=== PATIENT | male | born 1935 | race Caucasian/White ===

== ENCOUNTER 2021-06-02 13:52 | Inpatient (IN) | payer MEDICARE ==
[2021-06-02 15:07] LABS: Actual Bicarbonate (HCO3a) 49.7 mEq/L (22-28); Analyzer IN Cardio ER; Base Excess (BEa) 20.8 mEq/L (-2.0 to +3.0); Calcium, Ionized (arterial) 1.13 mmol/L (1.12-1.30); Carboxyhemoglobin (COHb) 0.8 gm% (0.0-3.0); Hemoglobin (Hb) 12.4 g/dL (14.0-18.0); Potassium - ABG Lab 3.97 mmol/L (3.70-5.30); pH, Arterial 7.41 (7.35-7.45)
[2021-06-02 15:14] LABS: Hemoglobin 12.2 g/dL (14.0-18.0); Mean Corpuscular HGB CONC 30.6 g/dL (32.0-36.0); Mean Corpuscular Hemoglobin 29.8 pg (27.0-31.0); Mean Corpuscular Volume 97.3 fL (78.0-98.0); Mean Platelet Volume 7.6 fL (7.4-10.4); Platelet Count 167 thou/uL (130-400); RBC Distribution Width 13.2 % (11.5-14.5); White Blood Cell (WBC) Count 23.8 thou/uL (4.8-10.8)
[2021-06-02] MEDS ORDERED: cefTRIAXone\\ROCEPHIN 1 GM VIAL ONE (15:16)
[2021-06-02 15:29] LABS: ALT (SGPT) 19 U/L (8-55); AST (SGOT) 14 U/L (5-34); Alkaline Phosphatase 75 U/L (40-110); BUN (Urea Nitrogen) 37 mg/dL (8.4-25.7); Band 6 % (5-11); Bilirubin, Total 1.3 mg/dL (0.2-1.2); Calc. Creatinine Clearance 0 mL/min (70-130); Calcium 9.2 mg/dL (7.8-10.44); Globulin 3.2 g/dL (2.4-3.5); Glucose 134 mg/dL (83-110); Lymphocytes 2 % (21-51); MDiff Complete? YES; Monocytes 5 % (0-10); Neutrophil 87 % (42-75); Platelet Morphology Comment Appears Adequate; Protein, Total 6.2 g/dL (5.8-8.1); RBC Morphology Normal
[2021-06-02 15:39] LABS: Anion Gap 14 mmol/L (10-20); Carbon Dioxide 40 mmol/L (23-31); Chloride 92 mmol/L (98-107); Potassium 4.2 mmol/L (3.5-5.1); Sodium 142 mmol/L (136-145)
[2021-06-02 15:50] LABS: CKMB 0.7 ng/mL (0-6.6)
[2021-06-02 15:51] LABS: SARS-CoV-2 NAA Rapid Test Not Detected (NotDetected)
[2021-06-02] MEDS ORDERED: Azithromycin 500 MG VIAL ONE (16:02)
[2021-06-02 16:24] LABS: CO2 Tension 80.4 mmHg (35.0-45.0); O2 Tension (PaO2), arterial 51.9 mmHg (> 60.0)
[2021-06-02 16:25] LABS: Puncture Site RRA
[2021-06-02] MEDS ORDERED: Ondansetron PF 4 MG/2 ML Vial IVP PRN (17:21)
[2021-06-02] MEDS ORDERED: Albuterol Sulfate 2.5 mg/3 ml Neb NEB PRN (17:21)
[2021-06-02] MEDS ORDERED: Sodium Chloride 0.9% 1,000 ML IV SCH (17:30)
[2021-06-02] MEDS: Arformoterol 15 MCG/2 ML NEB NEB SCH (18:59)
[2021-06-02] MEDS: Cefepime 2 GM in Sodium Chloride 0.9% 100 ML IVPB SCH (19:48)
[2021-06-02 19:52] LABS: Troponin I 0.026 ng/mL (< 0.028)
[2021-06-02] MEDS: Apixaban 5 MG TAB PO SCH (20:51)
[2021-06-02] MEDS: Atorvastatin Calcium 10 MG TAB PO SCH (20:51)
[2021-06-02 21:19] LABS: Troponin I 0.034 ng/mL (< 0.028)
[2021-06-02] MEDS ORDERED: VANCOMYCIN 2 GRAM/400 ML BAG 2 GM in Premix Bag 1 BAG IVPB SCH (22:00)
[2021-06-02 22:30] LABS: Lactic Acid 2.1 mmol/L (0.5-2.2)
[2021-06-03] MEDS: Cefepime 2 GM in Sodium Chloride 0.9% 100 ML IVPB SCH ×3 (02:21→17:30)
[2021-06-03 03:31] LABS: #Eosinphils 0.2 thou/uL (0.0-0.7); #Lymphocytes 0.5 thou/uL (1.20-3.40); #Monocytes 1.1 thou/uL (0.11-0.59); #Neutrophils 21.5 thou/uL (1.40-6.50); %Eosinophils 0.7 % (0.0-10.0); %Lymphocytes 2.3 % (21.0-51.0); %Monocytes 4.7 % (0.0-10.0); %Neutrophils 92.3 % (42.0-75.0); Hemoglobin 11.6 g/dL (14.0-18.0); Mean Corpuscular HGB CONC 30.6 g/dL (32.0-36.0); Mean Corpuscular Hemoglobin 30.2 pg (27.0-31.0); Mean Corpuscular Volume 98.9 fL (78.0-98.0); Mean Platelet Volume 7.9 fL (7.4-10.4); Platelet Count 150 thou/uL (130-400); RBC Distribution Width 13.2 % (11.5-14.5); Red Blood Cell (RBC) Count 3.85 mill/uL (4.70-6.10); White Blood Cell (WBC) Count 23.3 thou/uL (4.8-10.8)
[2021-06-03 04:07] LABS: Anion Gap 16 mmol/L (10-20); BUN (Urea Nitrogen) 27 mg/dL (8.4-25.7); Calc. Creatinine Clearance 104 mL/min (70-130); Calcium 8.7 mg/dL (7.8-10.44); Carbon Dioxide 33 mmol/L (23-31); Chloride 96 mmol/L (98-107); Glucose 81 mg/dL (83-110); Potassium 4.9 mmol/L (3.5-5.1); Sodium 137 mmol/L (136-145)
[2021-06-03] MEDS: Arformoterol 15 MCG/2 ML NEB NEB SCH ×2 (08:20→18:36)
[2021-06-03] MEDS: Carvedilol 3.125 MG TAB PO SCH ×2 (08:26→16:04)
[2021-06-03] MEDS: Apixaban 5 MG TAB PO SCH ×2 (08:27→20:17)
[2021-06-03] MEDS: Pantoprazole 40 MG VIAL IVP SCH (08:41)
[2021-06-03] MEDS ORDERED: FLU VACC QS2021-22(65YR UP)/PF 240 MCG/0.7 ML SYRINGE IM ONE (09:00)
[2021-06-03] MEDS ORDERED: predniSONE 20 MG TAB PO SCH (09:00)
[2021-06-03] MEDS ORDERED: Furosemide 40 MG/4 ML VIAL SLOW IVP SCH (10:15)
[2021-06-03] MEDS: Vancomycin 1 GM in Premix Bag 1 BAG IVPB SCH ×2 (10:42→22:01)
[2021-06-03] MEDS: Azithromycin 500 MG in Sodium Chloride 0.9% 250 ML 250 ML IVPB SCH (15:53)
[2021-06-03] MEDS: methylPREDNISolone Sod Succ 40 MG VIAL IVP SCH (20:18)
[2021-06-03] MEDS: Atorvastatin Calcium 10 MG TAB PO SCH (20:18)
[2021-06-04] MEDS: Cefepime 2 GM in Sodium Chloride 0.9% 100 ML IVPB SCH ×3 (02:23→19:01)
[2021-06-04 04:17] LABS: BUN (Urea Nitrogen) 33 mg/dL (8.4-25.7); Calc. Creatinine Clearance 76 mL/min (70-130); Calcium 9.1 mg/dL (7.8-10.44); Glucose 139 mg/dL (83-110)
[2021-06-04 04:24] LABS: Band 13 % (5-11); Hemoglobin 11.2 g/dL (14.0-18.0); Hypochromia SLIGHT = 6-15 cells (100X) (0-5/hpf); MDiff Complete? YES; Mean Corpuscular HGB CONC 30.7 g/dL (32.0-36.0); Mean Corpuscular Hemoglobin 29.5 pg (27.0-31.0); Mean Corpuscular Volume 96.1 fL (78.0-98.0); Metamyelocyte 1 % (0-0); Monocytes 8 % (0-10); Neutrophil 78 % (42-75); Nucleated RBC 0 % (0); Platelet Count 128 thou/uL (130-400); Platelet Morphology Comment Appears Adequate; RBC Distribution Width 13.4 % (11.5-14.5); White Blood Cell (WBC) Count 19.9 thou/uL (4.8-10.8)
[2021-06-04 04:26] LABS: Anion Gap 17 mmol/L (10-20); Carbon Dioxide 34 mmol/L (23-31); Chloride 94 mmol/L (98-107); Potassium 4.4 mmol/L (3.5-5.1); Sodium 141 mmol/L (136-145)
[2021-06-04] MEDS: Arformoterol 15 MCG/2 ML NEB NEB SCH ×2 (06:31→18:39)
[2021-06-04] MEDS: Pantoprazole 40 MG VIAL IVP SCH (08:55)
[2021-06-04] MEDS: methylPREDNISolone Sod Succ 40 MG VIAL IVP SCH ×2 (08:55→21:38)
[2021-06-04] MEDS: Apixaban 5 MG TAB PO SCH (08:56)
[2021-06-04] MEDS: Carvedilol 3.125 MG TAB PO SCH ×2 (08:56→16:18)
[2021-06-04 09:07] LABS: Vancomycin, Trough 19.2 ug/mL
[2021-06-04] MEDS ORDERED: Furosemide 40 MG/4 ML VIAL SLOW IVP SCH (09:30)
[2021-06-04] MEDS: Vancomycin 1 GM in Premix Bag 1 BAG IVPB SCH ×2 (09:37→21:38)
[2021-06-04] MEDS: Enoxaparin Sodium 100 MG/ML SYRINGE SC SCH ×2 (10:10→21:36)
[2021-06-04 10:23] LABS: Actual Bicarbonate (HCO3a) 50.3 mEq/L (22-28); Base Excess (BEa) 20.6 mEq/L (-2.0 to +3.0); Calcium, Ionized (arterial) 1.15 mmol/L (1.12-1.30); Carboxyhemoglobin (COHb) 1.1 gm% (0.0-3.0); Hemoglobin (Hb) 12.5 g/dL (14.0-18.0); O2 Tension (PaO2), arterial 63.4 mmHg (> 60.0); Potassium - ABG Lab 3.63 mmol/L (3.70-5.30); pH, Arterial 7.38 (7.35-7.45)
[2021-06-04 10:28] LABS: CO2 Tension 86.8 mmHg (35.0-45.0)
[2021-06-04 10:30] LABS: Puncture Site RRA
[2021-06-04 10:33] LABS: Actual Bicarbonate (HCO3a) 46.9 mEq/L (22-28); Base Excess (BEa) 18.9 mEq/L (-2.0 to +3.0); Calcium, Ionized (arterial) 1.13 mmol/L (1.12-1.30); Carboxyhemoglobin (COHb) 0.8 gm% (0.0-3.0); Hemoglobin (Hb) 12.3 g/dL (14.0-18.0); Potassium - ABG Lab 3.93 mmol/L (3.70-5.30); pH, Arterial 7.43 (7.35-7.45)
[2021-06-04 10:34] LABS: CO2 Tension 72.6 mmHg (35.0-45.0)
[2021-06-04 10:35] LABS: O2 Tension (PaO2), arterial 57.4 mmHg (> 60.0); Puncture Site RRA
[2021-06-04] MEDS: Azithromycin 500 MG in Sodium Chloride 0.9% 250 ML 250 ML IVPB SCH (15:53)
[2021-06-04] MEDS: Atorvastatin Calcium 10 MG TAB PO SCH (21:44)
[2021-06-05] MEDS: Cefepime 2 GM in Sodium Chloride 0.9% 100 ML IVPB SCH ×3 (02:53→17:25)
[2021-06-05 04:26] LABS: #Basophils 0.1 thou/uL (0.0-0.2); #Lymphocytes 0.1 thou/uL (1.20-3.40); #Monocytes 0.2 thou/uL (0.11-0.59); %Basophils 1.1 % (0.0-1.0); %Lymphocytes 1.4 % (21.0-51.0); %Monocytes 2.1 % (0.0-10.0); %Neutrophils 95.4 % (42.0-75.0); Hemoglobin 10.7 g/dL (14.0-18.0); Mean Corpuscular HGB CONC 31.1 g/dL (32.0-36.0); Mean Corpuscular Hemoglobin 29.5 pg (27.0-31.0); Mean Platelet Volume 8.1 fL (7.4-10.4); Platelet Count 139 thou/uL (130-400); RBC Distribution Width 13.3 % (11.5-14.5); Red Blood Cell (RBC) Count 3.61 mill/uL (4.70-6.10); White Blood Cell (WBC) Count 10.5 thou/uL (4.8-10.8)
[2021-06-05 04:47] LABS: BUN (Urea Nitrogen) 47 mg/dL (8.4-25.7); Calc. Creatinine Clearance 76 mL/min (70-130); Calcium 8.7 mg/dL (7.8-10.44); Glucose 140 mg/dL (83-110)
[2021-06-05 04:57] LABS: Anion Gap 12 mmol/L (10-20); Carbon Dioxide 40 mmol/L (23-31); Chloride 94 mmol/L (98-107); Potassium 3.2 mmol/L (3.5-5.1); Sodium 143 mmol/L (136-145)
[2021-06-05] MEDS: Arformoterol 15 MCG/2 ML NEB NEB SCH ×2 (07:07→18:59)
[2021-06-05] MEDS: Carvedilol 3.125 MG TAB PO SCH ×3 (09:41→20:52)
[2021-06-05] MEDS: Enoxaparin Sodium 100 MG/ML SYRINGE SC SCH ×2 (09:42→20:53)
[2021-06-05] MEDS: Pantoprazole 40 MG VIAL IVP SCH (09:43)
[2021-06-05] MEDS: methylPREDNISolone Sod Succ 40 MG VIAL IVP SCH ×2 (09:43→20:53)
[2021-06-05] MEDS: Vancomycin 1 GM in Premix Bag 1 BAG IVPB SCH (09:44)
[2021-06-05] MEDS: Azithromycin 500 MG in Sodium Chloride 0.9% 250 ML 250 ML IVPB SCH (16:25)
[2021-06-05] MEDS: Acetaminophen 325 MG TAB PO PRN (17:24)
[2021-06-05] MEDS ORDERED: Melatonin 3 MG TAB PO PRN (18:49)
[2021-06-05] MEDS ORDERED: Senokot S 8.6-50 MG TAB PO PRN (18:49)
[2021-06-05] MEDS ORDERED: Polyethylene Glycol 3350 17 GM Packet PO PRN (18:49)
[2021-06-05] MEDS: Atorvastatin Calcium 10 MG TAB PO SCH (20:52)
[2021-06-05 21:18] LABS: Vancomycin, Trough 24.8 ug/mL
[2021-06-06] MEDS: Cefepime 2 GM in Sodium Chloride 0.9% 100 ML IVPB SCH ×3 (03:25→18:32)
[2021-06-06 03:32] LABS: #Lymphocytes 0.3 thou/uL (1.20-3.40); #Monocytes 0.2 thou/uL (0.11-0.59); #Neutrophils 7.4 thou/uL (1.40-6.50); %Basophils 0.4 % (0.0-1.0); %Lymphocytes 3.2 % (21.0-51.0); %Monocytes 2.2 % (0.0-10.0); %Neutrophils 94.3 % (42.0-75.0); Hemoglobin 10.6 g/dL (14.0-18.0); Mean Corpuscular HGB CONC 30.9 g/dL (32.0-36.0); Mean Corpuscular Hemoglobin 29.4 pg (27.0-31.0); Mean Corpuscular Volume 95.2 fL (78.0-98.0); Mean Platelet Volume 8.2 fL (7.4-10.4); Platelet Count 126 thou/uL (130-400); RBC Distribution Width 13.1 % (11.5-14.5); White Blood Cell (WBC) Count 7.9 thou/uL (4.8-10.8)
[2021-06-06 03:53] LABS: BUN (Urea Nitrogen) 44 mg/dL (8.4-25.7); Calc. Creatinine Clearance 85 mL/min (70-130); Calcium 8.8 mg/dL (7.8-10.44); Glucose 140 mg/dL (83-110)
[2021-06-06 04:03] LABS: Anion Gap 10 mmol/L (10-20); Carbon Dioxide 40 mmol/L (23-31); Chloride 98 mmol/L (98-107); Potassium 3.4 mmol/L (3.5-5.1); Sodium 145 mmol/L (136-145)
[2021-06-06] MEDS: Transdermal Patch Removal TOP SCH (05:04)
[2021-06-06] MEDS: VANCOMYCIN 2 GRAM/400 ML BAG 2 GM in Premix Bag 1 BAG IVPB SCH (06:19)
[2021-06-06] MEDS: Arformoterol 15 MCG/2 ML NEB NEB SCH ×2 (06:55→19:49)
[2021-06-06] MEDS: Carvedilol 3.125 MG TAB PO SCH ×2 (09:01→21:59)
[2021-06-06] MEDS: Enoxaparin Sodium 100 MG/ML SYRINGE SC SCH (09:01)
[2021-06-06] MEDS: Pantoprazole 40 MG VIAL IVP SCH (09:03)
[2021-06-06] MEDS: methylPREDNISolone Sod Succ 40 MG VIAL IVP SCH ×2 (09:06→22:15)
[2021-06-06] MEDS: Acetaminophen 325 MG TAB PO PRN (13:21)
[2021-06-06] MEDS: Lidocaine 5% Patch TD SCH (17:17)
[2021-06-06] MEDS: Azithromycin 500 MG in Sodium Chloride 0.9% 250 ML 250 ML IVPB SCH (17:17)
[2021-06-06] MEDS: Atorvastatin Calcium 10 MG TAB PO SCH (21:59)
[2021-06-06] MEDS: Apixaban 5 MG TAB PO SCH (21:59)
[2021-06-07] MEDS: Cefepime 2 GM in Sodium Chloride 0.9% 100 ML IVPB SCH ×3 (02:41→18:25)
[2021-06-07 03:40] LABS: #Basophils 0.1 thou/uL (0.0-0.2); #Lymphocytes 0.2 thou/uL (1.20-3.40); #Monocytes 0.2 thou/uL (0.11-0.59); %Basophils 1.4 % (0.0-1.0); %Eosinophils 0.1 % (0.0-10.0); %Monocytes 3.1 % (0.0-10.0); %Neutrophils 93.5 % (42.0-75.0); Hemoglobin 10.6 g/dL (14.0-18.0); Mean Corpuscular HGB CONC 31.7 g/dL (32.0-36.0); Mean Corpuscular Hemoglobin 30.2 pg (27.0-31.0); Mean Corpuscular Volume 95.3 fL (78.0-98.0); Mean Platelet Volume 8.5 fL (7.4-10.4); Platelet Count 105 thou/uL (130-400); RBC Distribution Width 13.1 % (11.5-14.5); Red Blood Cell (RBC) Count 3.51 mill/uL (4.70-6.10); White Blood Cell (WBC) Count 7.5 thou/uL (4.8-10.8)
[2021-06-07 03:45] LABS: BUN (Urea Nitrogen) 38 mg/dL (8.4-25.7); Calc. Creatinine Clearance 87 mL/min (70-130); Calcium 8.8 mg/dL (7.8-10.44); Glucose 145 mg/dL (83-110)
[2021-06-07 03:55] LABS: Anion Gap 12 mmol/L (10-20); Carbon Dioxide 34 mmol/L (23-31); Chloride 103 mmol/L (98-107); Potassium 3.4 mmol/L (3.5-5.1); Sodium 146 mmol/L (136-145)
[2021-06-07] MEDS: VANCOMYCIN 2 GRAM/400 ML BAG 2 GM in Premix Bag 1 BAG IVPB SCH (06:20)
[2021-06-07] MEDS: Transdermal Patch Removal TOP SCH (06:22)
[2021-06-07] MEDS: Arformoterol 15 MCG/2 ML NEB NEB SCH ×2 (08:01→19:04)
[2021-06-07] MEDS: Pantoprazole 40 MG VIAL IVP SCH (09:26)
[2021-06-07] MEDS: Carvedilol 3.125 MG TAB PO SCH ×2 (09:26→20:45)
[2021-06-07] MEDS: Apixaban 5 MG TAB PO SCH ×2 (09:26→20:45)
[2021-06-07] MEDS: methylPREDNISolone Sod Succ 40 MG VIAL IVP SCH ×2 (09:28→20:45)
[2021-06-07] MEDS: Azithromycin 500 MG in Sodium Chloride 0.9% 250 ML 250 ML IVPB SCH (16:30)
[2021-06-07] MEDS: Lidocaine 5% Patch TD SCH (16:31)
[2021-06-07] MEDS: Atorvastatin Calcium 10 MG TAB PO SCH (20:45)
[2021-06-08] MEDS: Cefepime 2 GM in Sodium Chloride 0.9% 100 ML IVPB SCH ×3 (03:03→19:40)
[2021-06-08] MEDS: Transdermal Patch Removal TOP SCH (03:04)
[2021-06-08] MEDS: Acetaminophen 325 MG TAB PO PRN ×2 (04:18→09:20)
[2021-06-08] MEDS: VANCOMYCIN 2 GRAM/400 ML BAG 2 GM in Premix Bag 1 BAG IVPB SCH (05:06)
[2021-06-08 06:32] LABS: Anion Gap 11 mmol/L (10-20); BUN (Urea Nitrogen) 31 mg/dL (8.4-25.7); Calc. Creatinine Clearance 101 mL/min (70-130); Calcium 8.3 mg/dL (7.8-10.44); Carbon Dioxide 34 mmol/L (23-31); Chloride 103 mmol/L (98-107); Glucose 138 mg/dL (83-110); Potassium 3.2 mmol/L (3.5-5.1); Sodium 145 mmol/L (136-145)
[2021-06-08 06:34] LABS: Vancomycin, Trough 58.9 ug/mL
[2021-06-08] MEDS: Arformoterol 15 MCG/2 ML NEB NEB SCH ×2 (07:09→18:35)
[2021-06-08] MEDS: Apixaban 5 MG TAB PO SCH ×2 (09:20→19:40)
[2021-06-08] MEDS: Carvedilol 3.125 MG TAB PO SCH (09:20)
[2021-06-08] MEDS: Pantoprazole 40 MG VIAL IVP SCH (09:23)
[2021-06-08] MEDS: methylPREDNISolone Sod Succ 40 MG VIAL IVP SCH ×2 (09:23→19:40)
[2021-06-08] MEDS ORDERED: cefTRIAXone Sodium 2,000 MG in Syringe 0 ML IVPB SCH (09:30)
[2021-06-08] MEDS ORDERED: Potassium Bicarbonate/Cit Ac 20 MEQ TAB PO SCH (11:30)
[2021-06-08] MEDS ORDERED: Carvedilol 3.125 MG TAB PO SCH (11:30)
[2021-06-08] MEDS: Lidocaine 5% Patch TD SCH (16:06)
[2021-06-08 18:47] LABS: Vancomycin, Random 22.7 ug/mL (See Comment)
[2021-06-08] MEDS: Atorvastatin Calcium 10 MG TAB PO SCH (19:40)
[2021-06-08] MEDS: Carvedilol 6.25 MG TAB PO SCH (19:40)
[2021-06-08] MEDS ORDERED: VANCOMYCIN 2 GRAM/400 ML BAG 2 GM in Premix Bag 1 BAG IVPB SCH (20:00)
[2021-06-09] MEDS: Transdermal Patch Removal TOP SCH (03:17)
[2021-06-09 03:37] LABS: #Lymphocytes 0.4 thou/uL (1.20-3.40); #Monocytes 0.2 thou/uL (0.11-0.59); #Neutrophils 6.2 thou/uL (1.40-6.50); %Eosinophils 0.3 % (0.0-10.0); %Lymphocytes 5.1 % (21.0-51.0); %Monocytes 3.2 % (0.0-10.0); %Neutrophils 91.4 % (42.0-75.0); Hemoglobin 10.2 g/dL (14.0-18.0); Mean Corpuscular HGB CONC 30.8 g/dL (32.0-36.0); Mean Corpuscular Hemoglobin 29.6 pg (27.0-31.0); Mean Corpuscular Volume 96.1 fL (78.0-98.0); Mean Platelet Volume 7.9 fL (7.4-10.4); Platelet Count 134 thou/uL (130-400); RBC Distribution Width 13.3 % (11.5-14.5); Red Blood Cell (RBC) Count 3.46 mill/uL (4.70-6.10); White Blood Cell (WBC) Count 6.8 thou/uL (4.8-10.8)
[2021-06-09 03:58] LABS: BUN (Urea Nitrogen) 31 mg/dL (8.4-25.7); Calc. Creatinine Clearance 102 mL/min (70-130); Calcium 8.7 mg/dL (7.8-10.44); Glucose 122 mg/dL (83-110)
[2021-06-09 04:07] LABS: Anion Gap 11 mmol/L (10-20); Carbon Dioxide 38 mmol/L (23-31); Chloride 101 mmol/L (98-107); Potassium 4.3 mmol/L (3.5-5.1); Sodium 146 mmol/L (136-145)
[2021-06-09] MEDS: Arformoterol 15 MCG/2 ML NEB NEB SCH ×2 (07:12→18:56)
[2021-06-09] MEDS: methylPREDNISolone Sod Succ 40 MG VIAL IVP SCH (09:22)
[2021-06-09] MEDS: Apixaban 5 MG TAB PO SCH ×2 (09:22→21:58)
[2021-06-09] MEDS: Carvedilol 6.25 MG TAB PO SCH ×2 (09:22→21:58)
[2021-06-09] MEDS: Pantoprazole 40 MG VIAL IVP SCH (09:22)
[2021-06-09] MEDS ORDERED: Vancomycin HCl 1 GM in Sodium Chloride 0.9% 250 ML 250 ML IVPB SCH (10:15)
[2021-06-09] MEDS: Cefepime 2 GM in Sodium Chloride 0.9% 100 ML IVPB SCH (11:03)
[2021-06-09] MEDS: Lidocaine 5% Patch TD SCH (17:35)
[2021-06-09] MEDS: Atorvastatin Calcium 10 MG TAB PO SCH (21:58)
[2021-06-10 05:04] VITALS: BMI 30.7
[2021-06-10 05:32] LABS: #Eosinphils 0.1 thou/uL (0.0-0.7); #Lymphocytes 0.6 thou/uL (1.20-3.40); #Monocytes 0.3 thou/uL (0.11-0.59); #Neutrophils 5.6 thou/uL (1.40-6.50); %Eosinophils 1.1 % (0.0-10.0); %Lymphocytes 9.5 % (21.0-51.0); %Monocytes 3.8 % (0.0-10.0); %Neutrophils 85.6 % (42.0-75.0); Hemoglobin 10.2 g/dL (14.0-18.0); Mean Corpuscular HGB CONC 32.1 g/dL (32.0-36.0); Mean Corpuscular Hemoglobin 30.4 pg (27.0-31.0); Mean Corpuscular Volume 94.7 fL (78.0-98.0); Mean Platelet Volume 7.6 fL (7.4-10.4); Platelet Count 152 thou/uL (130-400); RBC Distribution Width 13.6 % (11.5-14.5); Red Blood Cell (RBC) Count 3.35 mill/uL (4.70-6.10); White Blood Cell (WBC) Count 6.5 thou/uL (4.8-10.8)
[2021-06-10 05:46] LABS: BUN (Urea Nitrogen) 26 mg/dL (8.4-25.7); Calc. Creatinine Clearance 105 mL/min (70-130); Calcium 8.4 mg/dL (7.8-10.44); Glucose 80 mg/dL (83-110)
[2021-06-10 05:56] LABS: Anion Gap 8 mmol/L (10-20); Carbon Dioxide 40 mmol/L (23-31); Chloride 101 mmol/L (98-107); Potassium 3.2 mmol/L (3.5-5.1); Sodium 146 mmol/L (136-145)
[2021-06-10] MEDS: Arformoterol 15 MCG/2 ML NEB NEB SCH ×2 (07:57→18:55)
[2021-06-10] MEDS ORDERED: Potassium Bicarbonate/Cit Ac 20 MEQ TAB PO SCH (08:00)
[2021-06-10] MEDS: Transdermal Patch Removal TOP SCH (08:44)
[2021-06-10] MEDS: Carvedilol 6.25 MG TAB PO SCH ×2 (09:36→20:26)
[2021-06-10] MEDS: Apixaban 5 MG TAB PO SCH ×2 (09:36→20:26)
[2021-06-10] MEDS: predniSONE 20 MG TAB PO SCH (09:36)
[2021-06-10 12:44] LABS: SARS-CoV-2 PCR by NAA Not Detected (NotDetected)
[2021-06-10] MEDS ORDERED: Loperamide HCl 2 MG CAP PO PRN (13:32)
[2021-06-10] MEDS: Lidocaine 5% Patch TD SCH (16:09)
[2021-06-10] MEDS: Atorvastatin Calcium 10 MG TAB PO SCH (20:26)
[2021-06-11] MEDS: Arformoterol 15 MCG/2 ML NEB NEB SCH (07:48)
[2021-06-11] MEDS: Transdermal Patch Removal TOP SCH (08:00)
[2021-06-11] MEDS ORDERED: Potassium Bicarbonate/Cit Ac 20 MEQ TAB PO SCH (08:00)
[2021-06-11] MEDS: predniSONE 20 MG TAB PO SCH (10:00)
[2021-06-11] MEDS: Carvedilol 6.25 MG TAB PO SCH (10:00)
[2021-06-11] MEDS: Apixaban 5 MG TAB PO SCH (10:00)
[2021-06-11] MEDS: Lidocaine 5% Patch TD SCH (17:45)
[2021-06-11 17:50] VITALS: BP 137/68; TEMP 97.7
== END 2021-06-11 17:45 | disposition hospice, home (50) | DRG 193 ==
LOC: ERS 13:52 → IMCU/EMU 16:36 → 2NO 06-09 13:35
PROVIDERS: ADMIT Family Medicine; ATTEND Hospitalist
PROC: 5A09557 Assistance with Respiratory Ventilation, Greater than 96 Consecutive Hours, Continuous Positive Airway Pressure (ICD-10-PCS; principal; 2021-06-02)
DX: J18.9 Pneumonia, unspecified organism (principal); J96.21 Acute and chronic respiratory failure with hypoxia; Z66 Do not resuscitate; Z20.822 Contact with and (suspected) exposure to COVID-19; J96.22 Acute and chronic respiratory failure with hypercapnia; E87.4 Mixed disorder of acid-base balance; J44.1 Chronic obstructive pulmonary disease with (acute) exacerbation; J44.0 Chronic obstructive pulmonary disease with (acute) lower respiratory infection; R79.89 Other specified abnormal findings of blood chemistry; R19.7 Diarrhea, unspecified; N18.30 Chronic kidney disease, stage 3 unspecified; I12.9 Hypertensive chronic kidney disease with stage 1 through stage 4 chronic kidney disease, or unspecified chronic kidney disease; I48.91 Unspecified atrial fibrillation; E78.5 Hyperlipidemia, unspecified; K21.9 Gastro-esophageal reflux disease without esophagitis; Z79.52 Long term (current) use of systemic steroids; Z79.899 Other long term (current) drug therapy; Z82.3 Family history of stroke; Z80.9 Family history of malignant neoplasm, unspecified; Z82.49 Family history of ischemic heart disease and other diseases of the circulatory system; Z99.81 Dependence on supplemental oxygen; Z90.49 Acquired absence of other specified parts of digestive tract; Z87.01 Personal history of pneumonia (recurrent); Z86.73 Personal history of transient ischemic attack (TIA), and cerebral infarction without residual deficits; Z95.0 Presence of cardiac pacemaker; Z87.891 Personal history of nicotine dependence
CPT/HCPCS: 0240U; 36415; 36600; 80048; 80202; 82553; 82805; 83605; 83880; 84484; 85025; 87040; 87324; 87449; 89220; 93005; 94640; 94660; 96365; 96366; 96367; 99292; C9113; J0456; J0692; J0696; J1650; J1940; J1956; J2920; J3370; J3490; J7030; J7050; J7512; J7620; U0003; U0005